=== PATIENT | female | born 1955 | race Caucasian/White ===

== ENCOUNTER 2018-01-05 21:21 | Emergency (ER) | payer OTHER ==
[~2018-01-05] VITALS: Ht 165.1 cm; Wt 72.6 kg
[2018-01-05] MEDS ORDERED: INDERAL LA80 MG (21:27)
[2018-01-05] MEDS ORDERED: TRICOR48 MG (21:28)
[2018-01-05] MEDS ORDERED: SINGULAIR10 MG (21:28)
[2018-01-05] MEDS ORDERED: TAGAMET400 MG (21:29)
== END 2018-01-05 22:23 | disposition home or self-care (01) ==
LOC: ER 21:21
DX: L27.0 Generalized skin eruption due to drugs and medicaments taken internally (principal); T50.995A Adverse effect of other drugs, medicaments and biological substances, initial encounter; Y92.89 Other specified places as the place of occurrence of the external cause

== ENCOUNTER → 2020-04-29 | Emergency (ER) | payer OTHER ==
[~2020-04-29] VITALS: Ht 165.1 cm; Wt 72.6 kg
[~2020-04-29] MED LIST: INDERAL LA80 MG; SINGULAIR10 MG; TAGAMET400 MG; TRICOR48 MG
== END | disposition left against medical advice (07) ==
LOC: ER 21:22 → EDBD 21:33 → ER 21:33
DX: Z53.21 Procedure and treatment not carried out due to patient leaving prior to being seen by health care provider (principal)